=== PATIENT | female | born 1985 | race Two or more races ===

== ENCOUNTER 2018-07-13 11:24 | Outpatient (CLI) | payer OTHER | END 2018-07-13 11:32 | disposition home or self-care (01) | LOC: RX STUDY 11:24 | DX: N93.0 Postcoital and contact bleeding (principal) ==

== ENCOUNTER 2019-07-03 10:03 | Inpatient (IN) | payer OTHER ==
[~2019-07-03] VITALS: Ht 167.6 cm; Wt 69.9 kg
[2019-07-18] MEDS ORDERED: REMICADE (10:40)
[2019-07-18] MEDS ORDERED: OBSTETRIX ONE1 EACH PO (10:42)
[2019-07-18] MEDS ORDERED: REMICADE IV (10:42)
== END 2019-07-28 11:08 | disposition home or self-care (01) | DRG 788 ==
LOC: LDR 07-25 09:55 → SURG-SUITE 07-25 09:55 → O/R 07-25 09:55 → SURG-SUITE 07-25 15:50 → OB/GYN 07-26 11:45 → SURG-SUITE 07-28 11:08 → OB/GYN 08-01 11:45
PROVIDERS: ADMIT Obstetrics & Gynecology
PROC: 4A1HXCZ Monitoring of Products of Conception, Cardiac Rate, External Approach (ICD-10-PCS; 2019-07-25)
PROC: 10D00Z1 Extraction of Products of Conception, Low, Open Approach (ICD-10-PCS; principal; 2019-07-25 14:45)
DX: O64.1XX0 Obstructed labor due to breech presentation, not applicable or unspecified (principal); Z3A.39 39 weeks gestation of pregnancy; Z37.0 Single live birth